=== PATIENT | male | born 1995 | race Caucasian/White ===

== ENCOUNTER 2024-02-15 14:30 | Emergency (ER) | payer SELFPAY ==
[2024-02-15 14:34] VITALS: BP 140/88; PULSE 86; O2SAT 97; BMI 40.5
[2024-02-15 15:48] VITALS: BP 134/75; PULSE 72; O2SAT 98
--- NOTE | 2024-02-15 16:24 | ED_ITS ---
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 Patient feels better and wants to go back to work tonight. Patient's chief concern is getting a work note so that he is excused from work on Tuesday and Tuesday evening along with making sure that he is okay to go back to work. Patient is not lightheaded, dizzy. No weakness or fatigue. No chest pain or shortness of breath. He's been drinking liquids yesterday and today with no difficulty. Patient is asymptomatic at this time. He has no PCP. . All systems are negative except as noted/marked. All systems reviewed and o therwise negative. . Nurses note and vital signs reviewed and patient is not hypoxic. General: The patient appears well and in no apparent distress. Patient is resting comfortably on cart. Patient is not toxic, lethargic, or listless Skin: Warm, dry, no pallor noted. There is no rash noted. No petechiae, purpura. Head: Normocephalic, atraumatic Eye: Normal conjunctiva, no drainage, EOMI. PERRL Ears, Nose, Mouth, and Throat: oral mucosa is moist. Nares patent. Mouth without vesicles. Cardiovascular: Regular Rate and Rhythm, no murmur, gallop, rub Respiratory: Patient is in no distress, no accessory muscle use, lungs are clear to auscultation, no wheezing, rales or rhonchi Back: non-tender, no CVA tenderness bilaterally to percussion. No CT LS midline pain GI: soft, Obese, no tenderness to palpation, no masses appreciated. No rebound, guarding, or rigidity noted. No flank pain bilateral, No distention Musculoskeletal: Patient has full range of motion of all of the extremities, no motor, sensory, or focal neurological deficits Neurological: A&O x3, normal speech Psychiatric: Cooperative Related Data Home Medications ?Medication ?Instructions ?Recorded ?Confirmed No Known Home Medications 02/15/24 02/15/24 Allergies Allergy/AdvReac Type Severity Reaction Status Date / Time No Known Drug Allergies Allergy Verified 02/15/24 14:34 Opioid HPI Opioid Management Most Recent Opioid Data: No Data to Display Exam Constitutional Vital Signs, click to edit/add: Last Vital Signs Pulse 72 02/15/24 15:48 Resp 16 02/15/24 15:48 BP 134/75 02/15/24 15:48 Pulse Ox 98 02/15/24 15:48 O2 Del Method Room Air 02/15/24 15:48 Course Vital Signs Vital signs: Vital Signs Pulse Rate 86 02/15/24 14:34 Respiratory Rate 20 02/15/24 14:34 Blood Pressure 140/88 02/15/24 14:34 Pulse Oximetry 97 02/15/24 14:34 Oxygen Delivery Method Room Air 02/15/24 14:34 Pulse Rate 72 02/15/24 15:48 Respiratory Rate 16 02/15/24 15:48 Blood Pressure 134/75 02/15/24 15:48 Pulse Oximetry 98 02/15/24 15:48 Oxygen Delivery Method Room Air 02/15/24 15:48 Medical Decision Making MDM Narrative Medical decision making narrative: Patient was told that we cannot give her notes in the past, but I did write him a senior care he missed work Tuesday and Tuesday. Patient sent home with Zofran use prophylactically if needed. Patient has an needs no testing at this time, patient agrees. Patient has no PCP. Patient is Admittedly here for a work note. No questions at discharge. Patient is drinking well no difficulty. Discharge Plan Discharge Stand Alone Forms: Work/School Release, Portal Instructions Chief Complaint: Nausea/Vomiting/Diarrhea Clinical Impression: Diarrhea, Mild dehydration, Nausea & vomiting Patient Disposition: Home, Self-Care Time of Disposition Decision: 16:18 Condition: Fair Mode of Transportation: Private Vehicle Prescriptions / Home Meds: No Action No Known Home Medications Print Language: Hungarian Instructions: Dehydration (ED), Acute Nausea and Vomiting (ED), Acute Diarrhea (ED) Additional Instructions: Increase fluids as discussed, Gatorade, Powerade, Pedialyte. Work note was given. Follow-up with PCP for any other recommendations. Referrals: Physician,Non-Staff, MD [Primary Care Provider] - 1 week Discharge Date/Time: 02/15/24 16:28
== END 2024-02-15 16:28 | disposition home or self-care (01) ==
PROVIDERS: Emergency Provider Emergency Medicine
DX: R11.2 Nausea with vomiting, unspecified (principal); R19.7 Diarrhea, unspecified; E86.0 Dehydration
CPT/HCPCS: 99281